=== PATIENT | male | born 1945 | race Caucasian/White ===

== ENCOUNTER 2019-03-26 06:00 | Outpatient (CLI) | payer OTHER, MEDICARE, MEDICAID, SELFPAY | END 2019-03-26 06:01 | disposition home or self-care (01) | LOC: ONCMED 10:49 | PROVIDERS: Family Provider Internal Medicine; PCP Internal Medicine; Visit Provider Internal Medicine Medical Oncology | DX: Z51.5 Encounter for palliative care (principal); C83.35 Diffuse large B-cell lymphoma, lymph nodes of inguinal region and lower limb; I10 Essential (primary) hypertension; E78.5 Hyperlipidemia, unspecified; E11.9 Type 2 diabetes mellitus without complications; I25.10 Atherosclerotic heart disease of native coronary artery without angina pectoris; M19.90 Unspecified osteoarthritis, unspecified site; K21.9 Gastro-esophageal reflux disease without esophagitis; E66.01 Morbid (severe) obesity due to excess calories; F41.8 Other specified anxiety disorders; Z92.21 Personal history of antineoplastic chemotherapy ==

== ENCOUNTER 2019-05-29 06:38 | Outpatient (CLI) | payer OTHER, MEDICARE, MEDICAID, SELFPAY ==
--- NOTE | 2019-05-29 13:07 | ONC FU_ITS ---
Dr. Pratt Patient Follow-Up Note Patient: Jered Mendez Unit #: [id number]: 1945 Dicatated By: Aaron Pratt M.D.Date of Visit:May 29, 2019 Onc Med Follow-up/Prog Note Chief Complaint: Lymphoma. 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 He had presented to Dr. Sanchez with fairly rapid onset of a skin lesion in the right lower leg, which he says had the appearance of a blood blister. An attempt to aspirate fluid from it was unsuccessful. He was then referred to Dr. Teran who described a suspicious mass on the lateral aspect of the right leg measuring 4 x 4 centimeters. Excisional biopsy was performed on 07/14/14. Pathology was consistent with primary cutaneous diffuse large B-cell lymphoma. The tumor was positive for CD20, BCL-6, and MUM1, and BCL-2. It was negative for CD3, CD5, CD10, and cyclin D1, and ZORAIDA. Ki-67 was high at 80-90%. The lesion was incompletely excised. I had seen him initially on . At that time I had recommended staging with PET/CT and bone marrow aspiration/biopsy. The bone marrow was negative. There was a significant delay with the PET/CT due to issues with his insurance carrier. It wasn't done until 09/30/2014 when he had a second opinion evaluation at [facility]. It showed uptake at the biopsy site in the lower right leg, consistent with inflammation. There was an area of uptake more proximally in the right leg which was felt to be consistent with another site of involvement. The only other area of abnormal uptake was in the right scrotum, significance of which was uncertain. There was a palpable mass associated with the area of uptake on the PET/CT. As that area appeared to be an extranodal site of involvement, his disease was felt to be stage MARCOS. The recommended treatment was 6 cycles of R-CHOP chemotherapy. He started the first cycle of chemotherapy in October 2014. It was complicated by dehydration and severe neutropenia. He did require hospitalization, but he did not have fever with it, and he recovered uneventfully. He did receive a 25% dose reduction in the cyclophosphamide and Adriamycin with the remaining cycles. He received his fourth cycle of treatment on 12/23/2014. Following that treatment he was back in the hospital again with nausea and dehydration. He did improve with IV fluids and IV anti-emetics. His white blood cell count was elevated, presumably from the Neulasta. He recovered uneventfully. Restaging CT scans on 01/11/2015 showed no evidence of lymphoma or lymphadenopathy in the chest or in the abdomen/pelvis. There is stable splenomegaly compared to previous study from March 2012. There was mild inhomogeneous attenuation of the lung parenchyma consistent with airway disease or pulmonary vascular disease. I had seen him for a followup visit on 01/13/2015. At that point he opted to stop treatment. A restaging PET/CT on 03/12/2015 was negative, consistent with complete response to chemotherapy. He was then followed on observation/expectant management. In May 2016 he had a skin biopsy from the right lower leg. Pathology showed lichen sclerosis et atrophicus. There was no evidence of lymphoma. He continued on observation/expectant management for the lymphoma. In January 2017 he underwent removal of a basal cell skin cancer from the left ear. I had seen him for a follow-up visit again on 12/03/2017. At that point his skin eruption appear to be getting worse. He underwent further evaluation with whole body PET/CT. It showed no evidence for recurrent or residual malignancy. In particular, dermal thickening of the right calf was noted to be FDG negative. He has multiple medical illnesses including hypertension, hyperlipidemia, type 2 diabetes, and coronary artery disease. He also has degenerative arthritis/degenerative disease of the spine, GERD, and severe obesity. He has only a very minimal smoking history, limited to cigars for about 6 months. He quit smoking more than 25 years ago. INTERIM HISTORY: At a follow-up visit with Dr. Sanchez there was further progression of the skin changes in the right leg, mainly in the area of the knee. He underwent punch biopsy on 04/14/2018. Pathology was consistent with diffuse large B-cell lymphoma, non-germinal center subtype. By immunoperoxidase staining the malignant cells were positive for CD45, CD20, BCL 6, BCL 2, Mum 1, cMyc, and vimentin. There were negative for CD10, CD3, CD5, cyclin D1, ZORAIDA, Sox 10, S100, Melan-A, and HMB-45. I had a follow-up visit on 04/25/2018. I reviewed further treatment options. He preferred to have just symptomatic/supportive care. I had seen him for a follow-up visit on 06/19/2018. At that point he did appear to be showing some decline. He subsequently was able to be placed in a longterm, and he was enrolled into hospice to continue his symptomatic/supportive care. Initially after admission to the longterm there was some improvement in his clinical status. However, he has since then been showing gradual decline. He is seen for a longterm visit. He remains very weak generally. He complains of having severe pain in his ankles with weightbearing. He also has pain in his knees, and he complains that his legs are weak. As such, he is now almost completely bedridden. His ECOG score is 3. He has now developed a decubitus skin lesion in the coccygeal area. His appetite has been okay. He has no fever or night sweats. He has some sinus drainage. He does not complain of shortness of breath, cough, or chest pain. He has had some discomfort in the epigastric area. He has no nausea/vomiting and he has no obvious acid reflux symptoms. His constipation is adequately managed on his current bowel regimen. He has frequent urination. He also has some pain in his neck and back. He has numbness/tingling in his feet. Medications: Acetaminophen 1 Suppository (of 650 mg) Rectal q 4 hours PRN, Ambien 1 (5 mg) Tablet Oral at bedtime, Aspirin 1 (325 mg) Tablet Oral daily, Atropine Sulfate 4 Drop(s) (of 1 mg/mL) Injection q 4 hours PRN, Bisacodyl 2 (5 mg) Tablet, enteric coated Oral daily PRN, Cough Drops Lozenge Mouth/throat, Cyclobenzaprine HCl 1 (10 mg) Tablet Oral t.i.d. PRN, Cymbalta 1 Capsule (of 60 mg) Capsule Delayed Release Particles Oral daily, Dulcolax 1 (10 mg) Suppository Rectal daily PRN, Duragesic-50 1 (50 mcg/hr) Patch 72 Hr Transdermal q 72 hours, Enema 1 (7-19 g/118mL) Enema Rectal daily PRN, Gabapentin 1 (300 mg) Capsule Oral at bedtime, Gentian Elizabeth 1 (1 %) Solution Topical daily, Hydrocodone-Acetaminophen 1 (10-325 mg) Tablet Oral q 4 hours PRN, LORazepam 0.25 - 1 mL (of 2 mg/mL) Concentrate Oral q 4 hours PRN, Metoprolol Tartrate 1 (25 mg) Tablet Oral b.i.d., Milk of Magnesia 30 mL (of 400 mg/5mL) Suspension Oral daily PRN, MiraLax 1 Scoop(s) (of 17 g) Powder Oral daily, Mirtazapine 1 Tablet (of 30 mg) Oral at bedtime, Nystatin 1 Dose(s) (of 499293 Units/g) Powder Topical b.i.d., Ondansetron 1 - 2 (4 mg) Tablet Dispersable Oral q 4 hours PRN, ProctoCare-HC 1 (2.5 %) Cream Rectal PRN, Senna-S 2 (8.6-50 mg) Tablet Oral b.i.d., Tamsulosin HCl 1 (0.4 mg) Capsule Oral daily Allergies: No Known Allergies. Review of Systems: Constitutional - His activity is very limited and he is now almost completely bed-bound. Appetite is pretty good. No fever or night sweats. ECOG score is 3, ENMT - He has a little sinus drainage. He has dry mouth. No sore throat or difficulty swallowing, Hematologic/Lymphatic - He bruises easily, Respiratory - He does not complain of shortness of breath or cough. No pleuritic pain or hemoptysis, Cardiovascular - No angina pain. No palpitations, Gastrointestinal - No nausea or vomiting. No heartburn or acid reflux. He has constipation, but bowels have been moving OK with his current bowel regimen. No blood in the stool or black stools, Genitourinary (M) - He has frequent urination. No dysuria or hematuria. No incontinence, Musculoskeletal - He has pain in his ankles and knees, and he complains that his legs are weak. He has some pain in the neck and back, Integumentary - He has a decubitus skin ulceration in the coccygeal area, Neurologic - No headache or dizziness. He has numbness/tingling in his feet, Psychiatric - He has anxiety and depression. He still has vivid dreams about every other night. Vital Signs: Performed on May 28, 2019 08:41 Height - 71.00 in Weight - 234.2 lbs (LOW) BSA - 2.26 sq.m BMI - 32.66 (HIGH) Temperature - 97.4 F (LOW) Pulse - 65 /min Respiration - 18 /min BP - 100/60 mm(hg) O2 Sat - 97 % Physical Examination: Constitutional - He appears generally weak, Eyes - Sclerae nonicteric. Conjunctivae clear, ENMT - No lesions noted in the oral cavity, Hematologic/Lymphatic - No cervical, clavicular, or axillary adenopathy, Respiratory - Lungs sound clear, Cardiovascular - Heart rhythm is regular. There is no murmur, gallop, or rub noted, Abdomen - Moderately distended but soft. Liver and spleen are not enlarged. There is no abdominal mass or ascites noted. There is no inguinal mass or adenopathy noted, Extremities - There is patchy, purplish discoloration in the medial aspect of the right leg just below the knee. There is no actual mass palpable. There is no lower extremity edema. Both feet are warm to touch, Integumentary - The cluster of exophytic lesions on the lateral aspect of the right leg just below the knee appears unchanged, Neurologic - He appears generally weak. He does not appear to have any focal neurologic deficit. Impression: 1. The patient has leg type primary cutaneous diffuse large B cell lymphoma involving the right lower leg. By clinical evaluation there appeared to be one additional site of involvement more proximally in the right leg. As this was felt to be extranodal site of involvement, his disease was felt to be stage MARCOS. He has multiple underlying medical illnesses, including hypertension, hyperlipidemia, diabetes and coronary artery disease. His pretreatment echocardiogram showed normal LV function with ejection fraction estimated at 55-60%. 2. He started treatment with R-CHOP chemotherapy in October 2014. As of 12/23/2014 he had completed 4 cycles of treatment. He experienced multiple toxicities including severe fatigue, nausea/dehydration, and myelosuppression. He did have a 25% dose reduction in the cyclophosphamide and Adriamycin following the first cycle. He did appear to have a very good response by clinical evaluation. He opted to stop treatment after the 4th cycle, which he completed in December 2014. There was no evidence of lymphoma on restaging CT scans in January 2015. 3. He had gradual improvement in his performance status following completion of the chemotherapy. A restaging PET/CT on 03/12/2015 was consistent with complete response to chemotherapy. He was then followed on observation/expectant management. 4. During follow-up he has had progressive worsening of skin changes in the right leg. As of December 2017 a restaging whole-body PET/CT showed no evidence of recurrent or residual lymphoma. 5. However, punch biopsy from the lateral aspect of the right leg just below the knee on 04/14/2018 did confirm recurrent diffuse large B-cell lymphoma, non-terminal center subtype. His other illnesses include: 6. Hypertension. 7. Hyperlipidemia. 8. Type II diabetes. 9. Coronary artery disease. 10. Obesity. 11. GERD. 12. Degenerative arthritis/degenerative disease of the spine. In the setting of documented recurrence of intermediate grade lymphoma, he had opted to just continue with symptomatic/supportive care. At his follow-up visit in June 2018 there was further decline in his performance status and there was obvious progression of disease in the area of the biopsy in the right leg. He was subsequently placed in the longterm to continue his symptomatic/supportive care on hospice. Initially after entering the longterm his condition improved somewhat, but he then began to have a gradual decline. There had been further progression of the tumor mass on the right leg, but that was much more gradual than I had expected. Since his visit in March the mass has actually shown significant resolution, for which I have no rational explanation. His overall condition, though, has continued to decline, as he is now almost completely bedridden. He does appear to be getting adequate symptomatic management, though. Plan: He will continue on symptomatic/supportive care. He is on decubitus skin care now, and he will be at risk for further skin ulcerations due to his limited mobility. At this point his symptomatic management appears to be adequate, and his medications will remain the same. Signed By: Aaron Pratt M.D. <<Signature on File>>
== END 2019-05-29 06:39 | disposition home or self-care (01) ==
LOC: ONCMED 06:38
PROVIDERS: Family Provider Internal Medicine; PCP Internal Medicine; Visit Provider Internal Medicine Medical Oncology
DX: Z01.89 Encounter for other specified special examinations (principal)

== ENCOUNTER 2020-03-25 10:53 | Inpatient (IN) | payer OTHER, MEDICARE, MEDICAID, SELFPAY ==
[2020-03-25] VITALS (10 sets, daily range): BP systolic 107–131; BP diastolic 55–68; PULSE 71–88; RESP 16–18; TEMP 36.3–37.1; O2SAT 95–98; BMI 42.5
--- NOTE | 2020-03-25 11:21 | USCV_ITS ---
Jered Mendez Age: 74 Gender: M : 1945 Exam Date: 03/25/2020 11:43 Ordering Phys: Aranza Avelar MD [facility] [place] Technologist: Emily Anand Exam Location: [facility] [place] Indication: SWOLLEN AND HAD RT LEG HISTORY: Swollen Rt. Leg. Being treated for lymphoma per pt. PROCEDURES: Venous duplex imaging was performed in only the right lower extremity. The following venous structures were evaluated: common femoral vein, profunda vein, proximal portion of the greater saphenous vein, superficial femoral vein, and the popliteal vein. In addition, the posterior tibial and peroneal trunk were evaluated. Serial compression, augmentation maneuvers, and spectral Doppler flow evaluation were performed. FINDINGS: Normal 2-D Doppler and augmentation and compressibility throughout the lower extremity venous structures. Additional imaging through the proximal calf veins also reveals no thrombus. Limited evaluation of the greater saphenous vein is patent with no thrombus. Solid mass with increased vascularity in the right groin. CONCLUSIONS No DVT right lower extremity. Right inguinal mass may be a lymph associated with known lymphoma. Dr. July Taylor DO (Electronically Signed) Final Date: 25 March 2020 12:16 S
[2020-03-25 11:48] LABS: Basophils % 0.4 %; Eosinophils # 0.1 10^3/uL (0.0-0.8); Hematocrit 36.8 % (42.0-52.0); Hemoglobin 11.4 g/dL (11.7-16.6); Lymphocytes # 1.1 10^3/uL (0.8-4.8); Lymphocytes % 21.6 %; Mean Corpuscular Hemoglobin 28.6 pg (28.0-34.0); Mean Corpuscular Volume 92.5 fL (80-94); Mean Platelet Volume 9.3 fL (7.4-10.4); Monocytes # 0.6 10^3/uL (0.2-0.9); Monocytes % 11.7 %; Neutrophils # 3.31 10^3/uL (1.8-7.7); Neutrophils % 64.3 %; Nucleated Red Blood Cells % 0 %; Platelet Count 129 10^3/cmm (130-400); Red Blood Count 3.98 10^6/uL (4.1-5.3); Red Cell Distribution Width 16.8 % (12.1-15.1); White Blood Count 5.1 10^3/uL (4.0-10.0)
--- NOTE | 2020-03-25 11:55 | W.ED.WOUNDLC ---
HPI - Wound/Laceration General: Chief Complaint: Wound/Laceration Stated Complaint: wounds to lower extremities Time Seen by Provider: 03/25/20 11:02 Source: patient, RN notes reviewed and other ([facility] staff) Mode of arrival: EMS History of Present Illness: HPI narrative: This 74-year-old gentleman is a [facility]it[facility] resident and was brought into the emergency department for evaluation of apparent worsening right leg swelling as well as wounds. The patient is not a great historian and he says he does not know why he is here. He has no complaints. The right lower extremity is obviously larger than the left and appears he has some chronic wounds there. He denies any fever, cough, chest pain, although he endorses some sore throat. The penitentiary staff wanted him evaluated for his leg ulcers and swelling. Associated symptoms: Denies chills, fever(s), nausea or vomiting Review of Systems General: Reports: 10 or more systems reviewed and unremarkable except in HPI and below Const: Denies: fever(s), chills or body aches Eyes: Denies: change in vision or blurry vision ENMT: Denies: throat pain, enlarged tonsils, odynophagia, hoarseness, mouth pain or swelling of lips/tongue Card: Denies: palpitations, irregular heart rhythm, edema or swelling of feet/ankles Resp: Denies: dyspnea, productive cough or non-productive cough GI: Denies: abdominal pain, nausea or vomiting : Denies: flank pain, dysuria, urinary frequency, urinary urgency or urinary hesitancy Musc: Denies: neck pain, back pain or extremity swelling Skin/Breast: Denies: rash, pruritus or erythema Neuro: Denies: headache(s), numbness in extremities or weakness in extremities Endo: Denies: polyuria, polydipsia or tired all the time Physical Exam Const: COMMON NORMALS: no acute distress, average body habitus, no limitations, healthy appearing, alert and well nourished ORIENTATION/CONSCIOUSNESS: Yes oriented to person HENMT: COMMON NORMALS: normocephalic, atraumatic and moist oral mucous membranes HEAD & SCALP: normocephalic and atraumatic Neck/C-Spine: COMMON NORMALS: no meningeal signs and no JVD Resp: COMMON NORMALS: normal respiratory effort, No retractions, No use of accessory muscles, clear to auscultation bilaterally and percussion normal AUSCULTATION: clear to auscultation bilaterally PERCUSSION: percussion normal Cardio: COMMON NORMALS: no JVD, regular rate, regular rhythm, S1 normal heart sound present, S2 normal heart sound present, No gallops present (Cardio), No clicks present (Cardio), No murmurs present (Cardio), No rub (Cardio) and Peripheral pulses 2+ throughout RATE: regular rate RHYTHM: regular rhythm HEART SOUNDS: S1 normal heart sound present and S2 normal heart sound present PERIPHERAL PULSES: Peripheral pulses 2+ throughout GI: COMMON NORMALS: Normal to inspection, nondistended, normoactive bowel sounds present, Soft to palpation, non-tender, No hepatosplenomegaly present, no masses and no bruits PALPATION: Yes Soft to palpation and Yes No hepatosplenomegaly present Extremity: COMMON NORMALS: normal to inspection, full ROM and capillary refill normal NARRATIVE EXTREMITY EXAM: Right lower extremity obviously markedly enlarged compared to the left. He has a clean gauze bandage wrapped around the middle third of his right lower extremity. Neuro: SENSORIUM/ORIENTATION: Yes alert and Yes oriented to person MENINGEAL SIGNS: Yes no meningeal signs Skin: COMMON NORMALS: no wounds, turgor normal, no jaundice, no petechiae and no mottling GENERAL SKIN EXAM: turgor normal Course ED course: When I was able to get in touch with a penitentiary, they said they were most concerned about his altered mental status and not his lower extremity. He apparently is usually independent and is able to feed himself, although he is bed reading. Today he was unable to feed himself and he was very confused. He was that way when he woke up this morning. Consultations: Consultation #1: Discussed the patient with Dr. Schmidt, and he kindly accepted patient to his service. 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 He has chronic swelling of his right lower extremity. He was sent to the emergency department today due to altered mental status, he is already on antibiotics for a UTI. Evaluation in the emergency department shows mildly elevated lactic acid, confusion, normal vital signs. He is admitted to the hospital service for further evaluation and management. While in the emergency department he received 1 g of ceftriaxone for possible UTI. Medical Records: Attestation: I reviewed the patient's medical records. Lab Data: Attestation: I reviewed the patient's lab results. Labs: Lab Results 03/25/20 03/25/20 03/25/20 Range/Units 11:41 11:41 11:41 WBC 5.1 (4.0-10.0) 10^3/ uL RBC 3.98 L (4.1-5.3) 10^6/u L Hgb 11.4 L (11.7-16.6) g/dL Hct 36.8 L (42.0-52.0) % MCV 92.5 (80-94) fL MCH 28.6 (28.0-34.0) pg MCHC 31.0 (30.0-36.0) g/dL RDW 16.8 H (12.1-15.1) % Plt Count 129 L (130-400) 10^3/c mm MPV 9.3 (7.4-10.4) fL Neut % (Auto) 64.3 % Lymph % (Auto) 21.6 % [place] % (Auto) 11.7 % Eos % (Auto) 1.0 % Baso % (Auto) 0.4 % Neut # (Auto) 3.31 (1.8-7.7) 10^3/u L Lymph # (Auto) 1.1 (0.8-4.8) 10^3/u L [place] # (Auto) 0.6 (0.2-0.9) 10^3/u L Eos # (Auto) 0.1 (0.0-0.8) 10^3/u L Baso # (Auto) 0.0 (0.0-0.1) 10^3/u L Nucleated RBC % (a uto) 0 % Nucleated RBCs # 0.0 /100WBC Sodium 136 (136-145) mmol/L Potassium 4.4 (3.5-5.1) mmol/L Chloride 99 (98-107) mmol/L Carbon Dioxide 29 (22-29) mmol/L Anion Gap 12.4 (5-19) BUN 25 H (8-23) mg/dL Creatinine 0.9 (0.7-1.2) mg/dL GFR Calculation Not Reportable Glucose 109 (65-115) mg/dL Calculated Osmolal ity 287 (285-295) mOsm/k g Lactate 2.3 H (0.5-2.2) mmol/L Calcium 11.2 H (8.5-10.5) mg/dL Total Bilirubin 0.9 (0.15-1.2) mg/dL AST 17 (0-40) U/L ALT 6 (0-41) U/L Alkaline Phosphata se 87 (40-130) IU/L C-Reactive Protein 33.1 H (0.0-4.9) mg/L NT-Pro-B Natriuret Pep 586 H (0-450) pg/mL Total Protein 6.0 L (6.6-8.7) g/dL Albumin 2.8 L (3.5-5.2) g/dL Globulin 3.2 (1.3-4.6) g/dL Urine Color (Yellow) Urine Appearance (CLEAR) Urine pH (5-7) Ur Specific Gravit y (1.005-1.030) Urine Protein (Negative) Urine Glucose (UA) (Normal) Urine Ketones (Negative) Urine Blood (Negative) Urine Nitrate (Negative) Urine Bilirubin (Negative) Urine Urobilinogen (Negative) mg/dL Ur Leukocyte Rachel ase (Negative) Urine RBC (0-2) /hpf Urine WBC (0-5) /hpf Ur Squamous Epith Cells (0-5) /hpf Amorphous Sediment Urine Bacteria (NONE) /hpf 03/25/20 03/25/20 Range/Units 14:50 15:41 WBC (4.0-10.0) 10^3/ uL RBC (4.1-5.3) 10^6/u L Hgb (11.7-16.6) g/dL Hct (42.0-52.0) % MCV (80-94) fL MCH (28.0-34.0) pg MCHC (30.0-36.0) g/dL RDW (12.1-15.1) % Plt Count (130-400) 10^3/c mm MPV (7.4-10.4) fL Neut % (Auto) % Lymph % (Auto) % [place] % (Auto) % Eos % (Auto) % Baso % (Auto) % Neut # (Auto) (1.8-7.7) 10^3/u L Lymph # (Auto) (0.8-4.8) 10^3/u L [place] # (Auto) (0.2-0.9) 10^3/u L Eos # (Auto) (0.0-0.8) 10^3/u L Baso # (Auto) (0.0-0.1) 10^3/u L Nucleated RBC % (a uto) % Nucleated RBCs # /100WBC Sodium (136-145) mmol/L Potassium (3.5-5.1) mmol/L Chloride (98-107) mmol/L Carbon Dioxide (22-29) mmol/L Anion Gap (5-19) BUN (8-23) mg/dL Creatinine (0.7-1.2) mg/dL GFR Calculation Glucose (65-115) mg/dL Calculated Osmolal ity (285-295) mOsm/k g Lactate 2.3 H (0.5-2.2) mmol/L Calcium (8.5-10.5) mg/dL Total Bilirubin (0.15-1.2) mg/dL AST (0-40) U/L ALT (0-41) U/L Alkaline Phosphata se (40-130) IU/L C-Reactive Protein (0.0-4.9) mg/L NT-Pro-B Natriuret Pep (0-450) pg/mL Total Protein (6.6-8.7) g/dL Albumin (3.5-5.2) g/dL Globulin (1.3-4.6) g/dL Urine Color Yellow (Yellow) Urine Appearance Clear (CLEAR) Urine pH 5 (5-7) Ur Specific Gravit y 1.030 (1.005-1.030) Urine Protein Neg (Negative) Urine Glucose (UA) Norm (Normal) Urine Ketones 1+ H (Negative) Urine Blood 2+ H (Negative) Urine Nitrate Negative (Negative) Urine Bilirubin 1+ H (Negative) Urine Urobilinogen 1 H (Negative) mg/dL Ur Leukocyte Rachel ase Negative (Negative) Urine RBC 15-25 H (0-2) /hpf Urine WBC 0-4 H (0-5) /hpf Ur Squamous Epith Cells 0-4 H (0-5) /hpf Amorphous Sediment Not Reportable Urine Bacteria 2+ H (NONE) /hpf Imaging Data^: CT Abd/Pel: Attestation: I personally reviewed and interpreted this imaging study as follows: Radiologist's impression: [place] [id number] [place] Scan Report Signed Patient: Jered Mendez #: [id number] : 4Acct#:[id number] Age/Sex: 74 / MADM Date: 03/25/20 Loc: ERRoom/Bed: Attending Dr: Ordering Provider/Ordering MD: Aranza [place]ar [place] [facility] [place] Service: 03/25/20 Procedure(s): CT kidney stone 43163 Accession Number(s): [id number] Report Number: [id number] PROCEDURE INFORMATION: Exam: CT Abdomen And Pelvis Without Contrast Exam date and time: 03/25/2020 4:54 PM Age: 74 years old Clinical indication: Other: Hematuria; Prior surgery; Surgery type: Gb, appy; Additional info: Hematuria, UTI TECHNIQUE: Imaging protocol: Computed tomography of the abdomen and pelvis without contrast. Radiation optimization: All CT scans at this facility use at least one of these dose optimization techniques: automated exposure control; mA and/or kV adjustment per patient size (includes targeted exams where dose is matched to clinical indication); or iterative reconstruction. COMPARISON: 1. CT abdomen pelvis wo con [id number] 12/14/2018 11:[address] Chest/Abdomen/Pelvis o 01/11/2015 11:47:36 AM RADIATION DOSE METRICS: Total DLP (mGy-cm): 2145.23 FINDINGS: Limitations: The absence of intravenous contrast lessens the sensitivity of this study for solid organ abnormalities. Lungs: There is some partial atelectasis at both lung bases, more on the right than on the left. Pleural space: There are small bilateral pleural effusions more on the right than on the left. Liver: There is no focal abnormality within the liver. Gallbladder and bile ducts: There has been a cholecystectomy. Pancreas: The pancreas is normal. Spleen: The spleen is normal. Adrenal glands: The adrenal glands are normal. Kidneys and ureters: There is a right renal collecting system calcification. There is no evidence of hydronephrosis. There is no stone along the course of either ureter. The left kidney is normal. Stomach and bowel: There is some mild thickening of the proximal rectal wall which could represent some residual proctitis. This however is improved compared with 12/14/2018. Appendix: Not identified Intraperitoneal space: There is no evidence of free intraperitoneal fluid. Vasculature: and small calcification anterior to the left renal vein. There are small bilateral inguinal hernias containing fat. There is abnormal swelling or edema in the soft tissues of the lower right flank on the lowest portion of this examination. This appears to be extending into the thigh. Correlation with clinical findings is suggested. This could represent focal bruising or contusion or less likely infectious or inflammatory disease. Lymph nodes: There is new right external iliac adenopathy compared with the previous examination with the largest group of nodes measuring 6.3 x 4.0 x 2.6 cm, This is worrisome for metastatic adenopathy. Urinary bladder: Unremarkable as visualized. Reproductive: Unremarkable as visualized. Bones/joints: Unremarkable. No acute fracture. Soft tissues: The upper abdominal soft tissue mass described on 12/14/2018 is much smaller with residual 12 mm sized soft tissue nodule near the location of its lower end CT/CT kidney stone [id number] IMPRESSION: 1. Nonobstructing right kidney stone. 2. No ureteral calculi. 3. There is new right external iliac adenopathy worrisome for recurrence or metastatic disease. 4. Abnormal soft tissue contusion or edema in the lower right flank. 5. Mild wall thickening of the proximal rectum. Is uncertain whether this represents recurrent or residual disease compared with 12/14/2018. 6. Small bilateral pleural effusions. 7. Basilar atelectasis. Radiation Dose CTDIVOL = (mGy): DLP = 2145.23 (mGy-cm) Dictated By:Sunny Haynes Signed By:Segel,KennethSigned Date/Time:03/25/201806 DD/ 04 CXR: Attestation: I personally reviewed and interpreted this imaging study as follows: Radiologist's impression: [employer] [address] [place] [address]. [place] [address] XRay Report Signed Patient: Jered Mendez #: [id number] : 1945cct#:[id number] Age/Sex: 74 / MADM Date: 03/25/20 Loc: ERRoom/Bed: Attending Dr: Ordering Provider/Ordering MD: Aranza Avelar MD, [facility] [place] of Service: 03/25/20 Procedure(s): XR chest 1V portable [id number] Accession Number(s): [id number] Report Number: [id number] WS: [id number] PORTABLE CHEST HISTORY: AMS COMPARISON: 12/14/2018 Right-sided Port-A-Cath with tip in the mid SVC. Lungs are clear and well expanded. No pleural effusion or pneumothorax. Cardiac size: Normal. Mediastinum/Aorta: Mild ectasia thoracic aorta with slight widening of the mediastinum is similar to prior studies. No osseous abnormality seen. XR/XR chest 1V portable [id number] IMPRESSION: Stable chest with no acute cardiopulmonary disease. Dictated By:July Taylor DO Signed By:July Taylor DOSigned Date/Time:03/25/20 162 DD/ 162 CT Head: Attestation: I personally reviewed and interpreted this imaging study as follows: Radiologist's impression: [employer] [address] [place] [address]. [place] [address] CT Scan Report Signed Patient: Jered Mendez #: [id number] : [id number]#:[id number] Age/Sex: 74 / MADM Date: 03/25/20 Loc: ERRoom/Bed: Attending Dr: Ordering Provider/Ordering MD: Aranza Avelar MD, [facility] [place] of Service: 03/25/20 Procedure(s): CT head wo con* [id number] Accession Number(s): [id number] Report Number: [id number] WS: [id number] CT HEAD NONCONTRAST HISTORY: AMS TECHNIQUE: Contiguous axial imaging performed through the brain in 2.5 mm imaging. Bone and soft tissue windows. Sagittal and coronal reformats reviewed. All CT scans at [facility] use at least one of these dose optimization techniques: automated exposure control; mA and/or kV adjustment per patient size (includes targeted exams where dose is matched to clinical indication); or iterative reconstruction. DLP: 921.22 mGy.cm COMPARISON: 12/14/2018 No acute intracranial hemorrhage, midline shift or mass effect. There is significant atrophy of the frontal lobes with increasing surrounding CSF. This is not an acute finding. No prior infarcts. Ventricles: Normal size with no hydrocephalus. Moderate vascular calcifications in the intracranial carotid arteries and also the distal RIGHT vertebral artery. Paranasal sinuses: Mastoid air cells: Small amount of fluid in the posterior RIGHT mastoid air cells. Calvarium and scalp: Skull is intact with no soft tissue edema or swelling. CT/CT head wo con* [id number] IMPRESSION: 1. 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 2. Normal size ventricles. 3. No acute intracranial findings. Dictated By:July Taylor DO Signed By:July Taylor DOSigned Date/Time:03/25/201413 DD/ 141 Vascular: Attestation: I personally reviewed and interpreted this imaging study as follows: Radiologist's impression: [address] [place] [address] Ultrasound Report Signed Patient: Jered Mendez SUnit #: [id number] : [id number]#:[id number] Age/Sex: 74 / MADM Date: 03/25/20 Loc: ERRoom/Bed: Attending Dr: Ordering Provider/Ordering MD: Aranza Avelar MD, [facility] [place] of Service: 03/25/20 Procedure(s): [place] [id number] Accession Number(s): [id number] Report Number: [id number] Jered Mendez Age: 74 Gender: M : 1945 Exam Date: 03/25/2020 11:43 Ordering Phys: Aranza Avelar MD [facility] [place] Technologist: Emily Anand [place] [facility] [place]ication: SWOLLEN AND HAD RT LEG HISTORY: Swollen Rt. Leg. Being treated for lymphoma per pt. PROCEDURES: Venous duplex imaging was performed in only the right lower extremity. The following venous structures were evaluated: common femoral vein, profunda vein, proximal portion of the greater saphenous vein, superficial femoral vein, and the popliteal vein. In addition, the posterior tibial and peroneal trunk were evaluated. Serial compression, augmentation maneuvers, and spectral Doppler flow evaluation were performed. FINDINGS: Normal 2-D Doppler and augmentation and compressibility throughout the lower extremity venous structures. Additional imaging through the proximal calf veins also reveals no thrombus. Limited evaluation of the greater saphenous vein is patent with no thrombus. Solid mass with increased vascularity in the right groin. CONCLUSIONS No DVT right lower extremity. Right inguinal mass may be a lymph associated with known lymphoma. Dr. July Taylor DO (Electronically Signed) Final Date: 25 March 2020 12:16 S EKG Data^: EKG 1: Attestation: I personally reviewed and interpreted this EKG as follows: EKG interpretation date: 03/25/20 EKG interpretation time: 14:09 Prior EKG tracings: not available for review Interpretation: Sinus rhythm with occasional supraventricular premature complexes. Heart rate [address] changes. Discharge Plan Discharge Patient Disposition: Admitted As Inpatient Admit Provider: Magdy Schmidt Clinical Impression: Altered mental status, Acute UTI, Acidosis, lactic Condition: Stable Coding Level of Care Code ED Director Life for Chg Fwd Exam Comprehensive
[2020-03-25 12:08] LABS: Lactate (Lactic Acid level) 2.3 mmol/L (0.5-2.2)
[2020-03-25 12:14] LABS: Alanine Aminotransferase 6 U/L (0-41); Albumin Level 2.8 g/dL (3.5-5.2); Alkaline Phosphatase 87 IU/L (40-130); Anion Gap 12.4 (5-19); Aspartate Amino Transferase 17 U/L (0-40); Blood Urea Nitrogen 25 mg/dL (8-23); C Reactive Protein 33.1 mg/L (0.0-4.9); Calcium 11.2 mg/dL (8.5-10.5); Carbon Dioxide 29 mmol/L (22-29); Chloride 99 mmol/L (98-107); Globulin 3.2 g/dL (1.3-4.6); Glucose 109 mg/dL (65-115); NT Pro B Type Natriuretic Pept 586 pg/mL (0-450); Osmolality Calculated 287 mOsm/kg (285-295); Potassium 4.4 mmol/L (3.5-5.1); Sodium 136 mmol/L (136-145); Total Bilirubin 0.9 mg/dL (0.15-1.2)
--- NOTE | 2020-03-25 13:46 | ECG_ITS ---
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 Measurements Intervals [place] Rate: 77 P: 50 AZ: 166 QRS: -11 QRSD: 119 T: 58 QT: 363 QTc: 413 Interpretive Statements SINUS RHYTHM WITH OCCASIONAL SUPRAVENTRICULAR PREMATURE COMPLEXES POSSIBLE LATERAL MYOCARDIAL INFARCTION , OF INDETERMINATE AGE [30 ms Q WAVE IN I/aVL/V5/V6] Compared to ECG 12/15/2018 00:39:09 Myocardial infarct finding now present Electronically Signed On 03-25-2020 19:12:46 CLERK CARRIER by Cesario Escobar M.D. [id number]
--- NOTE | 2020-03-25 13:46 | CT_ITS ---
WS: [id number] CT HEAD NONCONTRAST HISTORY: AMS TECHNIQUE: Contiguous axial imaging performed through the brain in 2.5 mm imaging. Bone and soft tiss ue windows. Sagittal and coronal reformats reviewed. All CT scans at [facility] use at le ast one of these dose optimization techniques: automated exposure control; mA and/or kV adjustment pe r patient size (includes targeted exams where dose is matched to clinical indication); or iterative r econstruction. DLP: 921.22 mGy.cm COMPARISON: 12/14/2018 No acute intracranial hemorrhage, midline shift or mass effect. There is significant atrophy of the frontal lobes with increasing surrounding CSF. This is not an acu te finding. No prior infarcts. Ventricles: Normal size with no hydrocephalus. Moderate vascular calcifications in the intracranial carotid arteries and also the distal RIGHT verte bral artery. Paranasal sinuses: Mastoid air cells: Small amount of fluid in the posterior RIGHT mastoid air cells. Calvarium and scalp: Skull is intact with no soft tissue edema or swelling. CT/CT head wo con* [id number] IMPRESSION: 1. 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 2. Normal size ventricles. 3. No acute intracranial findings.
[2020-03-25] MEDS: sodium chloride 0.9% 500 ML IV (14:28)
[2020-03-25 15:33] LABS: Add Urine Microscopic? YES; Bilirubin Urine 1+ (Negative); Blood Urine 2+ (Negative); Glucose Urine UA Norm (Normal); Ketones Urine 1+ (Negative); Leukocyte Esterase Urine Negative (Negative); Nitrate Urine Negative (Negative); Protein Urine Neg (Negative); Urine Appearance Clear (CLEAR); Urine Color Yellow (Yellow); Urobilinogen Urine 1 mg/dL (Negative); pH Urine 5 (5-7)
[2020-03-25 15:34] LABS: RBC Urine 15-25 /hpf (0-2)
[2020-03-25 15:35] LABS: Add Urine Culture? Yes; Bacteria Urine 2+ /hpf; Squamous Epithelial Cell Urine 0-4 /hpf (0-5); WBC Urine 0-4 /hpf (0-5)
[2020-03-25] MEDS: cefTRIAXone 1,000 MG in sodium chloride 0.9% (plus) 50 ML 100 MG IV (15:57)
[2020-03-25 16:03] LABS: Lactate (Lactic Acid level) 2.3 mmol/L (0.5-2.2)
--- NOTE | 2020-03-25 16:03 | XR_ITS ---
WS: [id number] PORTABLE CHEST HISTORY: AMS COMPARISON: 12/14/2018 Right-sided Port-A-Cath with tip in the mid SVC. Lungs are clear and well expanded. No pleural effusion or pneumothorax. Cardiac size: Normal. Mediastinum/Aorta: Mild ectasia thoracic aorta with slight widening of the mediastinum is similar to prior studies. No osseous abnormality seen. XR/XR chest 1V portable [id number] IMPRESSION: Stable chest with no acute cardiopulmonary disease.
--- NOTE | 2020-03-25 16:46 | CTR_ITS ---
PROCEDURE INFORMATION: Exam: CT Abdomen And Pelvis Without Contrast Exam date and time: 03/25/2020 4:54 PM Age: 74 years old Clinical indication: Other: Hematuria; Prior surgery; Surgery type: Gb, appy; Additional info: Hematuria, UTI TECHNIQUE: Imaging protocol: Computed tomography of the abdomen and pelvis without contrast. Radiation optimization: All CT scans at this facility use at least one of these dose optimization techniques: automated exposure control; mA and/or kV adjustment per patient size (includes targeted exams where dose is matched to clinical indication); or iterative reconstruction. COMPARISON: 1. CT abdomen pelvis wo con [id number] 12/14/2018 11:[address] Chest/Abdomen/Pelvis wwo 01/11/2015 11:47:36 AM RADIATION DOSE METRICS: Total DLP (mGy-cm): 2145.23 FINDINGS: Limitations: The absence of intravenous contrast lessens the sensitivity of this study for solid organ abnormalities. Lungs: There is some partial atelectasis at both lung bases, more on the right than on the left. Pleural space: There are small bilateral pleural effusions more on the right than on the left. Liver: There is no focal abnormality within the liver. Gallbladder and bile ducts: There has been a cholecystectomy. Pancreas: The pancreas is normal. Spleen: The spleen is normal. Adrenal glands: The adrenal glands are normal. Kidneys and ureters: There is a right renal collecting system calcification. There is no evidence of hydronephrosis. There is no stone along the course of either ureter. The left kidney is normal. Stomach and bowel: There is some mild thickening of the proximal rectal wall which could represent some residual proctitis. This however is improved compared with 12/14/2018. Appendix: Not identified Intraperitoneal space: There is no evidence of free intraperitoneal fluid. Vasculature: and small calcification anterior to the left renal vein. There are small bilateral inguinal hernias containing fat. There is abnormal swelling or edema in the soft tissues of the lower right flank on the lowest portion of this examination. This appears to be extending into the thigh. Correlation with clinical findings is suggested. This could represent focal bruising or contusion or less likely infectious or inflammatory disease. Lymph nodes: There is new right external iliac adenopathy compared with the previous examination with the largest group of nodes measuring 6.3 x 4.0 x 2.6 cm, This is worrisome for metastatic adenopathy. Urinary bladder: Unremarkable as visualized. Reproductive: Unremarkable as visualized. Bones/joints: Unremarkable. No acute fracture. Soft tissues: The upper abdominal soft tissue mass described on 12/14/2018 is much smaller with residual 12 mm sized soft tissue nodule near the location of its lower end CT/CT kidney stone [id number] IMPRESSION: 1. Nonobstructing right kidney stone. 2. No ureteral calculi. 3. There is new right external iliac adenopathy worrisome for recurrence or metastatic disease. 4. Abnormal soft tissue contusion or edema in the lower right flank. 5. Mild wall thickening of the proximal rectum. Is uncertain whether this represents recurrent or residual disease compared with 12/14/2018. 6. Small bilateral pleural effusions. 7. Basilar atelectasis. Radiation Dose CTDIVOL = (mGy): DLP = 2145.23 (mGy-cm)
--- NOTE | 2020-03-25 19:39 | P.HP_ITS ---
Providers/Chief Complaint Admitting Physician: Magdy Schmidt Primary Care Provider: Ashley Sanchez MD Chief Complaint: wounds to lower extremities History of Present Illness Pleasant 74-year-old gentleman with relapsing/remitting course of DLBCL with primary cutaneous focus treated with R-CHOP in 2014 initially with good response, but elected to stop treatment after fourth cycle, without evidence of lymphoma on restaging scans, however, with progressive worsening of skin changes in the right leg in 2018, with confirmation punch biopsy of recurrence of DLBCL, managed symptomatically, with supportive care since then, transiently also on hospice care until last July, with gradual/persistent decline in functional status, he is completely bedridden, with other history including CAD DM2, HTN, HLD, obesity. At [facility] currently he is undergoing treatment for urinary tract infection with Bactrim. I could not reach the [facility] for details, with most history obtained from ER physician with spoken with him earlier, patient, and patient's daughter who is also his DURABLE POWER OF LYE TREATER. He states that he also had return of quite a bit of swelling in his right lower extremity. He was brought in for evaluation due to change in mental status, he was significantly more confused than usual. She also reports last several days he had declined to take any of his medications, even if they were crushed. He himself currently appears to be more alert. He is able to tell me he thinks he is in the hospital, but does not remember the name of the town, or the year. He does remember that he has lymphoma, does not recall any other medical problems. He then remembers that he may have seen a heart doctor and had a stent placed. He does not remember the name of the heart doctor, does not remember the name of his oncologist. States he may have been in [place] once previously. He states that his eyes have been somewhat burning and itching like there is sand in them. He also thinks he may have been having diarrhea, although there has been no report of this. In ER he is afebrile (and has been afebrile at [facility] per documentation), without leukocytosis. With anemia, hemoglobin 11.4, platelet level 129. Normal sodium and potassium level. BUN 25. Creatinine 0.9. Lactic acid 2.3. Calcium 11.2. BNP 586. Total protein 6. Albumin 2.8. CRP 33. UA with 1+ ketones, 2+ blood, 1+ bilirubin, positive urobilinogen, 15- 25 RBC, 0-4 WBC, 0-4 squamous epithelial cells. 2+ bacteria. George catheter was placed in ER. His EKG showed sinus rhythm with occasional PVCs. In ER he is noted to have marked swelling of the right lower extremity. Venous duplex was obtained without finding of DVT. With finding of right inguinal mass possib ly due to lymphoma. Head CT showed moderate to severe bilateral frontal lobe atrophy, normal size ventricle, no acute findings. Chest x-ray with no acute cardiopulmonary disease. CT abdomen pelvis renal protocol shows nonobstructing right kidney stone, no ureteral stones. Noted new right external iliac adenopathy worrisome for recurrence of metastatic disease. Abnormal soft tissue contusion or edema in the lower right flank. Mild wall thickening of the proximal rectum. Small bilateral pleural effusions. Bilateral atelectasis. In ER he received 500 mill fluid bolus, and 1 g of ceftriaxone. Review of Systems Const: Denies: fever(s), chills, body aches or malaise Eyes: Denies: change in vision or eye redness ENMT: Denies: throat pain, oral sores or ear or mastoid pain Card: Denies: chest pain, edema, pre-syncope or dyspnea on exertion Resp: Denies: dyspnea, productive cough, change in phlegm color or hemoptysis GI: Denies: abdominal pain, nausea, vomiting, diarrhea, constipation, hematochezia or melena : Denies: flank pain, difficulty urinating, urinary frequency or hematuria Musc: Denies: back pain, joint swelling or joint redness Skin/Breast: Denies: rash, sores or new lesions Neuro: Denies: headache(s), numbness in extremities, weakness in extremities, dizziness, confusion or seizure-like activity Endo: Denies: polyuria or polydipsia Jameel/Lymph: Denies: easy bleeding or purpura All/Imm: Denies: urticaria, throat swelling or tongue swelling Medications/Allergies Home Medications Medication Instructions Recorded Confirmed Last Taken Type Cough Drops (with eucalyptus) 1 tab PO Q2H PRN 03/25/20 03/25/20 Unknown History acetaminophen 650 mg MO Q4H PRN 03/25/20 03/25/20 Unknown History aspirin 325 mg PO DAILY@0700 03/25/20 03/25/20 03/25/20 History atropine 4 drp OPHTHALMIC (EYE) Q4H PRN 03/25/20 03/25/20 Unknown History baclofen 10 mg PO TID PRN 03/25/20 03/25/20 Unknown History bisacodyl [Dulcolax (bisacodyl)] 5 mg PO DAILY PRN 03/25/20 03/25/20 Unknown History duloxetine [Cymbalta] 60 mg PO DAILY@0700 03/25/20 03/25/20 03/25/20 History fentanyl 1 patch TRANSDERMAL Q72H 03/25/20 03/25/20 03/24/20 History gabapentin 300 mg PO TID@0700,1200,1800 03/25/20 03/25/20 03/25/20 History gentian rod See Rx Instructions .ROUTE .COMPLEX 03/25/20 03/25/20 03/22/20 History hydrocodone-acetaminophen 1 tab PO Q4H 03/25/20 03/25/20 03/25/20 History hydrocortisone [Proctozone-HC] See Rx Instructions .ROUTE .COMPLEX 03/25/20 03/25/20 Unknown History magnesium hydroxide [Milk of 400 mg PO DAILY PRN 03/25/20 03/25/20 Unknown History Magnesia] metoprolol tartrate 25 mg PO BID@0700,2100 03/25/20 03/25/20 03/25/20 History nystatin [Nystop] See Rx Instructions .ROUTE .COMPLEX 03/25/20 03/25/20 03/24/20 History ondansetron 4 mg PO Q6H PRN 03/25/20 03/25/20 Unknown History polyethylene glycol 3350 [Miralax] 17 g PO DAILY 03/25/20 03/25/20 03/25/20 History sennosides-docusate sodium [Senna 2 tab PO BID@0700,2100 03/25/20 03/25/20 03/25/20 History Plus] sodium phosphates [Fleet Enema] 118 ml MO DAILY PRN 03/25/20 03/25/20 Unknown History tamsulosin 0.4 mg PO DAILY@2100 03/25/20 03/25/20 03/24/20 History zolpidem 5 mg PO BEDTIME@2100 03/25/20 03/25/20 03/24/20 History Allergies Allergy/AdvReac Type Severity Reaction Status Date / Time No Known Drug Allergies Allergy Unknown Unknown Unverified 03/25/20 11:02 PFSH Acute PFSH: Medical History CAD (coronary artery disease) DLBCL (diffuse large B cell lymphoma) DM type 2 (diabetes mellitus, type 2) GERD (gastroesophageal reflux disease) HLD (hyperlipidemia) HTN (hypertension) Obesities, morbid Osteoarthritis of spine Surgical History Stented coronary artery Family History (Updated 03/25/20 @ 19:51 by Magdy Schmidt MD) Other Diabetes Social History Smoking and tobacco status: never smoked Alcohol intake: never Substance/Drug Use: never Lives independently: No Housing: [place] Marital status: / Vitals/I&O/Wt Last Vital Signs Temp 97.4 F L 03/25/20 19:26 Pulse 86 03/25/20 19:26 Resp 16 03/25/20 19:26 BP 111/58 03/25/20 19:26 Pulse Ox 95 03/25/20 19:26 03/25/20 03/25/20 03/25/20 06:59 14:59 22:59 Intake Total 550 / 550 Balance 550 / 550 Weight last 48 hrs Weight 130.635 kg Physical Exam Const: COMMON NORMALS: no acute distress and patient oriented x3 HENMT: COMMON NORMALS: oropharynx normal Neck/C-Spine: COMMON NORMALS: no JVD Resp: COMMON NORMALS: normal respiratory effort and clear to auscultation bilaterally AUSCULTATION: clear to auscultation bilaterally Cardio: COMMON NORMALS: no JVD, regular rhythm, S1 normal heart sound present, S2 normal heart sound present and No murmurs present (Cardio) RHYTHM: regular rhythm HEART SOUNDS: S1 normal heart sound present and S2 normal heart sound present GI: COMMON NORMALS: Normal to inspection, nondistended, normoactive bowel sounds present, Soft to palpation and non-tender PALPATION: Yes Soft to palpation Extremity: COMMON NORMALS: no joint enlargement and no pedal edema Neuro: COMMON NORMALS: patient oriented x3 and moves all extremities Skin: COMMON NORMALS: no rashes or lesions noted RASHES: rashes noted (With severe lymphedema, multiple patchy spots of erythema, some very shallo) Shallow areas of discoloration, without drainage, few blisters of right lower extremity. OTHER: No active sacral decub. Urinary Catheter Management^: George: Cath Placed During This Visit: yes Reason for Continuing Indwelling Catheter: Accurate Measurement of Urinary Output in Critically Ill Patients Urinary Catheter Date of Insertion: 03/25/20 Urinary Catheter Time of Insertion: 17:22 Data : 03/25/20 11:41 03/25/20 11:41 Micro: Microbiology 03/25/20 16:18 Blood Culture - Preliminary Blood SPECIMEN COLLECTED 03/25/20 16:15 Blood Culture - Preliminary Blood SPECIMEN COLLECTED A&P Assessment and plan (1) Altered mental status: Appears today was rather confused in the morning. This, however, appears may have been developing over some time as he had refused to take any of his medications over several days. Possible encephalopathy due to urinary tract infection. Possible adverse effect of medication (withdrawal). Although also he is treated with fentanyl patch, baclofen, hydrocodone, Ambien, and is on duloxetine, and as discussed with daughter any and all of these medications are potential to lead to alteration of mental status and delirium. Possibly delirium due to metabolic abnormality including dehydration, hypercalcemia. At this time will treat UTI. Monitor for possible diarrhea at which point may treat for possible colitis. We will rehydrate. Reassess hypercalcemia. If persistent, consider additional work-up. Check TSH. Discussed with his daughter, perhaps once we take care of a few this reversible causes mental status may improve. Still there may also be a chance that we may not be able to reverse his recent decline which may also be part of progressive loss of functional capacity which has been advancing over the last 2 years. He was transiently on hospice up until last July at which point it appears he was discharged from hospice. Daughter states that she was not notified of this. Status: Acute Qualifiers: Altered mental status type: unspecified Qualified Code(s): R41.82 - Altered mental status, unspecified (2) Acute UTI: Complicated urinary tract infection with acute encephalopathy. We will request medical record for urine culture-was obtained at [facility]. Has been receiving Bactrim. For now we will hold off on this, with elevated BUN, risk of acute kidney injury with dehydration. For now we will switch over to Cipro. Follow-up urine culture. Blood culture. Incidentally noted nonobstructing right kidney stone, possibly responsible for microscopic hematuria. No hydronephrosis on CT. Status: Acute (3) Acidosis, lactic: Previously on Metformin, but apparently has declined to take this any further some days ago. Lactic acidosis suspect is more likely secondary to hypovolemia, poor oral intake. Will rehydrate. Treat UTI as above. Status: Acute (4) Dehydration: IV hydration Status: Acute (5) Hypercalcemia: Rehydrate. Reassess in the morning. Check TSH. Status: Acute (6) Lymphedema of right lower extremity: Appears to have recurrence of metastatic disease, DLBCL, with noted significant right groin lymphadenopathy, with resultant right lower extremity lymphedema. Right flank edema. No obvious cellulitis, but some small patchy areas of erythema. Cannot exclude cellulitis. For now we will empirically treat with vancomycin. Status: Acute (7) DLBCL (diffuse large B cell lymphoma): With recurrence of disease, extensive right groin lymphadenopathy with resultant lymphedema of her lower extremity. Manage symptomatically/supportive care. Status: Acute (8) Abnormality of rectum: Unclear whether there may be some colitis, although this appears perhaps somewhat chronic. Unclear whether this may be related to his lymphoma. He does report perhaps having some diarrhea, although this is unconfirmed, not sure that his history is reliable. We will monitor for now. In case of suspicion of colitis will broaden coverage. Status: Acute (9) Hematuria: Hematuria likely secondary to UTI versus nonobstructing right renal calculus. Status: Acute (10) Right renal stone: Incidentally noted on CT scan. Nonobstructing. Status: Acute (11) Atelectasis: Encourage incentive spirometer. Status: Acute (12) Thrombocytopenia: Platelets 129,000. Perhaps related to lymphoma versus infection. Monitor. Consider discontinuation of heparin VT prophylaxis in case of severe decline. Status: Acute (13) Normocytic anemia: Status: Acute (14) Obesities, morbid: Status: Acute (15) DM type 2 (diabetes mellitus, type 2): Reportedly he discontinued taking Metformin recently. Monitor glucose. With very poor oral intake will start regular diet. Status: Acute Attestations Medical Necessity Statement*: Place in observation. Coding Level of Care Code Acute [employer] for Chg Fwd Diagnoses Altered mental status R41.82 Altered mental status type: unspecified Acute UTI N39.0 Acidosis, lactic E87.2 Dehydration E86.0 Hypercalcemia E83.52 Lymphedema of right lower extremity I89.0 DLBCL (diffuse large B cell lymphoma) C83.30 Abnormality of rectum K62.9 Hematuria R31.9 Right renal stone N20.0 Atelectasis J98.11 Thrombocytopenia D69.6 Normocytic anemia D64.9 Obesities, morbid E66.01 DM type 2 (diabetes mellitus, type 2) E11.9
--- NOTE | 2020-03-25 20:10 | PC.PHAR ---
Vancomycin is dosed at 1gm IVPB every 8 hours to produce a predicted trough level of 14.49 (population based pharmacokinetic analysis). A trough level has been ordered from the lab to be obtained before the fourth dose to confirm and adjust if needed.
[2020-03-25] MEDS: ciprofloxacin 400 MG/200 ML PREMIX 200 MG IV (20:26)
[2020-03-25] MEDS: sodium chloride 0.9% 1,000 ML 100 ML IV (20:31)
[2020-03-25 20:50] LABS: Thyroid Stimulating Hormone 3.44 uIU/mL (0.27-4.20)
[2020-03-25] MEDS: heparin 5,000 unit/mL INJ 1 mL 5000 UNIT SUBCUT (20:57)
[2020-03-25] MEDS: vancomycin 1,000 MG in sodium chloride 0.9% 250 ML 250 MG IV (21:35)
--- NOTE | 2020-03-26 01:10 | PC.NURSE ---
Patient refused medications Patient is pleasantly confused. Patient does not want to take medications. He says he cannot swallow the medication. I offered to crush them and put them in pudding he again refused. I tried to give patient some water on a sponge and he would not open his mouth just how his teeth clenched. When I asked him to stick his tongue out he just smiled with clenched teeth and would not open his mouth.
[2020-03-26 04:00] VITALS: BP 136/75; PULSE 83; RESP 16; TEMP 36.4; O2SAT 94
[2020-03-26] MEDS: vancomycin 1,000 MG in sodium chloride 0.9% 250 ML 250 MG IV ×3 (04:23→20:51)
[2020-03-26] MEDS: heparin 5,000 unit/mL INJ 1 mL 5000 UNIT SUBCUT ×3 (04:25→20:09)
[2020-03-26 04:58] LABS: Basophils % 0.2 %; Hematocrit 33.6 % (42.0-52.0); Hemoglobin 10.3 g/dL (11.7-16.6); Lymphocytes # 0.9 10^3/uL (0.8-4.8); Lymphocytes % 16.8 %; Mean Corpuscular HGB Conc 30.7 g/dL (30.0-36.0); Mean Corpuscular Hemoglobin 28.4 pg (28.0-34.0); Mean Corpuscular Volume 92.6 fL (80-94); Mean Platelet Volume 9.6 fL (7.4-10.4); Monocytes # 0.5 10^3/uL (0.2-0.9); Monocytes % 8.7 %; Neutrophils % 73.4 %; Nucleated Red Blood Cells % 0 %; Platelet Count 125 10^3/cmm (130-400); Red Blood Count 3.63 10^6/uL (4.1-5.3); Red Cell Distribution Width 17.1 % (12.1-15.1); White Blood Count 5.3 10^3/uL (4.0-10.0)
[2020-03-26 05:20] LABS: Alanine Aminotransferase 6 U/L (0-41); Albumin Level 2.5 g/dL (3.5-5.2); Alkaline Phosphatase 73 IU/L (40-130); Anion Gap 15.3 (5-19); Aspartate Amino Transferase 15 U/L (0-40); Blood Urea Nitrogen 27 mg/dL (8-23); Calcium 10.5 mg/dL (8.5-10.5); Carbon Dioxide 26 mmol/L (22-29); Chloride 102 mmol/L (98-107); Globulin 2.8 g/dL (1.3-4.6); Glucose 136 mg/dL (65-115); Osmolality Calculated 295 mOsm/kg (285-295); Phosphorus 2.6 mg/dL (2.5-4.5); Potassium 4.3 mmol/L (3.5-5.1); Sodium 139 mmol/L (136-145); Total Bilirubin 0.7 mg/dL (0.15-1.2); Total Protein 5.3 g/dL (6.6-8.7)
[2020-03-26 07:45] VITALS: BP 126/67; PULSE 87; RESP 18; TEMP 36.6; O2SAT 97
[2020-03-26] MEDS: HYDROcodone-acetaminophen 10-325 mg Tablet 0.5 TAB PO ×3 (07:50→23:26)
[2020-03-26] MEDS: aspirin 325 mg Tablet PO (07:50)
[2020-03-26] MEDS: metoprolol tartrate 25 mg Tablet PO ×2 (07:50→20:09)
[2020-03-26] MEDS: duloxetine 20 mg Capsule PO (07:55)
[2020-03-26] MEDS: ciprofloxacin 400 MG/200 ML PREMIX 200 MG IV (07:59)
[2020-03-26 08:12] LABS: Glucose Point of Care 136 mg/dL (70-110)
[2020-03-26 10:55] LABS: Glucose Point of Care 147 mg/dL (70-110)
[2020-03-26 11:00] VITALS: BP 148/69; PULSE 75; RESP 17; TEMP 36.6; O2SAT 96
[2020-03-26] MEDS: sodium chloride 0.9% 1,000 ML 100 ML IV ×2 (12:16→23:26)
[2020-03-26 15:23] VITALS: BP 145/74; PULSE 84; RESP 17; TEMP 36.6; O2SAT 95
[2020-03-26 15:51] LABS: Glucose Point of Care 133 mg/dL (70-110)
--- NOTE | 2020-03-26 19:18 | P.PN_ITS ---
Subjective Subjective: Interval history: He is not feeling well today. No appetite. Very nauseated. Generally weak. Vitals/I&O/Wt Last Vital Signs Temp 97.8 F 03/26/20 15:23 Pulse 84 03/26/20 15:23 Resp 17 03/26/20 15:23 BP 145/74 03/26/20 15:23 Pulse Ox 95 03/26/20 15:23 03/26/20 03/26/20 03/26/20 06:59 14:59 22:59 Intake Total 1250 / 2250 Output Total 300 / 300 200 / 500 Balance 1250 / 2250 -300 / -300 -200 / -500 Weight last 48 hrs Weight 127.278 kg Weight 130.635 kg Physical Exam Const: NUTRITIONAL APPEARANCE: obese morbidly obese OTHER: Uncomfortable with nausea, generalized weakness. Daughter is accompanying him at bedside. HENMT: COMMON NORMALS: oropharynx normal Neck/C-Spine: COMMON NORMALS: no JVD Resp: COMMON NORMALS: normal respiratory effort and clear to auscultation bilaterally AUSCULTATION: clear to auscultation bilaterally Cardio: COMMON NORMALS: no JVD, regular rhythm, S1 normal heart sound present, S2 normal heart sound present and No murmurs present (Cardio) RHYTHM: regular rhythm HEART SOUNDS: S1 normal heart sound present and S2 normal heart sound present GI: COMMON NORMALS: Normal to inspection, nondistended, normoactive bowel sounds present and Soft to palpation PALPATION: Yes Soft to palpation and Yes Tenderness to palpation present (GI) (Mild generalized tenderness) Extremity: COMMON NORMALS: no joint enlargement and no pedal edema Neuro: COMMON NORMALS: moves all extremities Skin: RASHES: rashes noted (With severe lymphedema, multiple patchy spots of erythema, some very shallo) OTHER: No active sacral decub. Prior decubitus noted. Urinary Catheter Management^: George: Cath Placed During This Visit: yes Reason for Continuing Indwelling Catheter: Accurate Measurement of Urinary Output in Critically Ill Patients Urinary Catheter Date of Insertion: 03/25/20 Urinary Catheter Time of Insertion: 17:22 Data : 03/26/20 04:18 03/26/20 04:18 Micro: Microbiology 03/25/20 16:18 Blood Culture - Preliminary Blood NEGATIVE TO DATE 03/25/20 16:15 Blood Culture - Preliminary Blood NEGATIVE TO DATE 03/25/20 14:50 Urine Culture - Preliminary Urine,Clean Catch A&P Assessment and plan (1) Altered mental status: She is currently less confused, recognizing his daughter. He is generally very weak, bothered by nausea. Not like his usual self. Continue treatment of UTI with adjustment of antibiotic. Does not have diarrhea at this time. Dehydration little bit better. Hypercalcemia improved, calcium 10.5. TSH is normal. Discussing with residential it appears he had been receiving all his medications. For now some lows which may responsible for mental status changes including Ambien, baclofenAre on hold. Duloxetine dose decreased. Discussed concern of possible metastatic disease to the brain. Unfortunately MRI at this time would not be feasible, and his daughter also agrees would likely not foreign exchange position clerk or prognosis. She is agreeable to treating some of the potential reversible conditions, including UTI, dehydration, and otherwise supportive/symptomatic care. She is looking to resume hospice care if this is possible for him, and I agree that this is an appropriate course of action given his overall functional capacity and quality of life. Status: Acute Qualifiers: Altered mental status type: unspecified Qualified Code(s): R41.82 - Altered mental status, unspecified (2) Acute UTI: Discussing with [facility] it appears that UTI was due to ESBL E. coli. This is sensitive to ertapenem, meropenem, Bactrim, tigecycline, resistant to other antibiotics. It appears he had finished Bactrim on 03/19. Changed antibiotic regimen. Discontinue Cipro. Start Primaxin. Follow-up urine culture. Complicated urinary tract infection with acute encephalopathy. Incidentally noted nonobstructing right kidney stone, possibly responsible for microscopic hematuria. No hydronephrosis on CT. Status: Acute (3) Acidosis, lactic: Previously on Metformin, but apparently has declined to take this any further some days ago. Lactic acidosis suspect is more likely secondary to hypovolemia, poor oral intake. Rehydrate. Treat UTI as above. Status: Acute (4) Dehydration: IV hydration Status: Acute (5) Hypercalcemia: With improvement. Rehydrate. TSH normal. Phosphorus normal. Status: Acute (6) Lymphedema of right lower extremity: Lymphedema with patchy areas of erythema, areas of thickening of the skin, likely secondary to recurrence of primary skin DLBCL and meta stasis to regional lymph nodes in the groin, with lymphatic flow obstruction resulting in lymphedema. Possible superimposed cellulitis. Continue vancomycin. Elevate right lower extremity. Status: Acute (7) DLBCL (diffuse large B cell lymphoma): With recurrence of disease, extensive right groin lymphadenopathy with resultant lymphedema of her lower extremity. Manage symptomatically/supportive care. Case management consultation regarding possibility of resumption of hospice care. Status: Acute (8) Abnormality of rectum: Unclear whether there may be some colitis, although this appears perhaps s omewhat chronic. Unclear whether this may be related to his lymphoma. He does report perhaps having some diarrhea, although this is unconfirmed, not sure that his history is reliable. We will monitor for now. In case of suspicion of colitis will broaden coverage. Status: Acute (9) Hematuria: Hematuria likely secondary to UTI versus nonobstructing right renal calculus. Status: Acute (10) Right renal stone: Incidentally noted on CT scan. Nonobstructing. Status: Acute (11) Atelectasis: Encourage incentive spirometer. Status: Acute (12) Thrombocytopenia: Platelets 125,000. Perhaps related to lymphoma versus infection. Monitor. Consider discontinuation of heparin VT prophylaxis in case of severe decline. Status: Acute (13) Normocytic anemia: Status: Acute (14) Obesities, morbid: Status: Acute (15) DM type 2 (diabetes mellitus, type 2): Reportedly he discontinued taking Metformin recently. Monitor glucose. With very poor oral intake will start regular diet. Status: Acute Attestations Medical Necessity Statement*: Continue admission for assessment management of complicated UTI, infection related encephalopathy, cellulitis, with recurrence of DLBCL, with worsening of generalized weakness, functional decline. Coding Level of Care Code Acute Warehouse Order Picker for Chg Fwd Diagnoses Altered mental status R41.82 Altered mental status type: unspecified Acute UTI N39.0 Acidosis, lactic E87.2 Dehydration E86.0 Hypercalcemia E83.52 Lymphedema of right lower extremity I89.0 DLBCL (diffuse large B cell lymphoma) C83.30 Abnormality of rectum K62.9 Hematuria R31.9 Right renal stone N20.0 Atelectasis J98.11 Thrombocytopenia D69.6 Normocytic anemia D64.9 Obesities, morbid E66.01 DM type 2 (diabetes mellitus, type 2) E11.9
[2020-03-26 20:00] VITALS: BP 136/64; PULSE 80; RESP 16; TEMP 36.4; O2SAT 95
[2020-03-26] MEDS: tamsulosin 0.4 mg Capsule PO (20:09)
[2020-03-26 20:17] LABS: Vancomycin Trough 17.4 ug/mL (10-15)
[2020-03-26] MEDS: artificial tears Op Oint 3.5 gm 1 APPLIC EYE-BOTH (20:44)
[2020-03-26] MEDS: ondansetron 2 mg/ML SDV 2 mL 4 MG IVP (20:45)
[2020-03-26 20:52] LABS: Glucose Point of Care 129 mg/dL (70-110)
[2020-03-27] VITALS (7 sets, daily range): BP systolic 104–147; BP diastolic 62–67; PULSE 72–89; RESP 16–19; TEMP 36.4–37.2; O2SAT 94–97
[2020-03-27] MEDS: vancomycin 1,000 MG in sodium chloride 0.9% 250 ML 250 MG IV ×3 (04:04→20:05)
[2020-03-27] MEDS: heparin 5,000 unit/mL INJ 1 mL 5000 UNIT SUBCUT ×3 (04:04→20:06)
--- NOTE | 2020-03-27 04:56 | PC.NURSE ---
Patient is very confused this am. Lab went in to draw blood. He was yelling he wanted to just let me He was trying to pull his catheter out. He succeeded in pulling out his IV. Patient told me to leave him alone. He would not let me put an IV back in. He was wrapping the call light cord around his hand and pulling tightly. Doctor notified, patient is now a 1:1
[2020-03-27 05:28] LABS: Basophils % 0.2 %; Eosinophils % 0.4 %; Hematocrit 33.8 % (42.0-52.0); Hemoglobin 10.3 g/dL (11.7-16.6); Lymphocytes # 1.1 10^3/uL (0.8-4.8); Lymphocytes % 21.8 %; Mean Corpuscular HGB Conc 30.5 g/dL (30.0-36.0); Mean Corpuscular Hemoglobin 28.7 pg (28.0-34.0); Mean Corpuscular Volume 94.2 fL (80-94); Mean Platelet Volume 9.2 fL (7.4-10.4); Monocytes # 0.5 10^3/uL (0.2-0.9); Monocytes % 9.7 %; Neutrophils # 3.32 10^3/uL (1.8-7.7); Neutrophils % 67.1 %; Nucleated Red Blood Cells % 0 %; Platelet Count 135 10^3/cmm (130-400); Red Blood Count 3.59 10^6/uL (4.1-5.3); Red Cell Distribution Width 17.5 % (12.1-15.1)
[2020-03-27 05:59] LABS: Alanine Aminotransferase 6 U/L (0-41); Albumin Level 2.6 g/dL (3.5-5.2); Alkaline Phosphatase 73 IU/L (40-130); Aspartate Amino Transferase 14 U/L (0-40); Blood Urea Nitrogen 25 mg/dL (8-23); Calcium 10.3 mg/dL (8.5-10.5); Carbon Dioxide 27 mmol/L (22-29); Chloride 102 mmol/L (98-107); Glucose 115 mg/dL (65-115); Osmolality Calculated 287 mOsm/kg (285-295); Sodium 136 mmol/L (136-145); Total Bilirubin 0.7 mg/dL (0.15-1.2); Total Protein 5.6 g/dL (6.6-8.7)
[2020-03-27 06:29] LABS: Glucose Point of Care 104 mg/dL (70-110)
[2020-03-27] MEDS: ondansetron 2 mg/ML SDV 2 mL 4 MG IVP ×2 (09:24→17:57)
[2020-03-27] MEDS: HYDROcodone-acetaminophen 10-325 mg Tablet 0.5 TAB PO ×4 (10:11→23:02)
[2020-03-27] MEDS: sodium chloride 0.9% 1,000 ML 100 ML IV ×2 (10:15→16:49)
--- NOTE | 2020-03-27 10:21 | PC.CHAP ---
Pastoral Care Encounter/Spiritual Assessment Type of Contact [] Declined front office help visit [] Patient/Family/Request visit [] Outpatient visit [] Follow-up visit [] Physician referral [] Code/Alert [x] Routine visit [] Staff referral [] Actively dying [] Patient sleeping [] Family support [] [] Out of room [] Palliative care [] [] Receiving care in room [] Pre-surgical visit [] Trauma [] Long length of stay [] ICU visit [] Other: Relational/Emotional Strength [x] Patient feels connected with others/family/visitors/staff [] Distress [] Loneliness/isolation [] Abandonment Spirituality of Patient [x] Person of Lindsay [] Attends Buddhism of their [place] [x] Believes in Prayer [] Reads Bible or Cheondoism materials [] There are Spiritual issues to be addressed Internal Corrosion Specialist Interventions [x] Prayer [x] Active listening [x] Non-anxious presence [x] Spiritual/emotional support [] Crisis/trauma care [] Spiritual counseling [] Bereavement support [] Provided bereavement packet [] Provided Bible/devotional materials [] Provided toy/stuffed animal, coloring book to patient or family member [] Provided Communion [] Anointing/[place] [] Salvation [x] Completed spiritual assessment [] Other: Impact on Illness or Injury [] Angry [] Fearful [] Anxious [] Often cries [] Exhaustion [] Unable to work [] Unable to attend congregational [] Unable to walk/stand [] Unable to read [] Unable to drive [] Unable to eat/drink [] Unable to sleep [] Unable to be with family [] Patient intubated [] Other: Summary Chaplains talked to and prayed with Patient. Time spent with patient 8 minutes.
[2020-03-27 11:00] LABS: Glucose Point of Care 124 mg/dL (70-110)
--- NOTE | 2020-03-27 12:37 | PC.NURSE ---
Called Brandi at [facility] with update of patient's status. Per Dr. Schmidt, patient will probably be discharged back to [place] on hospice. Brandi requests we discharge him tomorrow, due to their inability to get his new rx on the weekend.
[2020-03-27 13:13] LABS: Ionized Calcium 1.4 mmol/L (1.1-1.4)
[2020-03-27 16:23] LABS: Glucose Point of Care 116 mg/dL (70-110)
--- NOTE | 2020-03-27 16:37 | PM.PN ---
Subjective Subjective: Interval history: He is still quite bothered by nausea. Overnight he had told the nurses that he was ready to pass away, although appears overnight was also confused. Pulled out yesterday. This morning reports some abdominal discomfort. Vitals/I&O/Wt Last Vital Signs Temp 97.9 F 03/27/20 15:19 Pulse 83 03/27/20 15:19 Resp 17 03/27/20 15:19 BP 122/64 03/27/20 15:19 Pulse Ox 95 03/27/20 15:19 03/27/20 03/27/20 03/27/20 06:59 14:59 22:59 Intake Total 590 / 2290 1100 / 1100 Output Total 400 / 900 200 / 200 300 / 500 Balance 190 / 1390 900 / 900 -300 / 600 Weight last 48 hrs Weight 128.866 kg Weight 127.278 kg Physical Exam Const: COMMON NORMALS: no acute distress NUTRITIONAL APPEARANCE: obese morbidly obese OTHER: Awake, alert, appears uncomfortable from nausea. HENMT: COMMON NORMALS: oropharynx normal Neck/C-Spine: COMMON NORMALS: no JVD Resp: COMMON NORMALS: normal respiratory effort and clear to auscultation bilaterally AUSCULTATION: clear to auscultation bilaterally Cardio: COMMON NORMALS: no JVD, regular rhythm, S1 normal heart sound present, S2 normal heart sound present and No murmurs present (Cardio) RHYTHM: regular rhythm HEART SOUNDS: S1 normal heart sound present and S2 normal heart sound present GI: COMMON NORMALS: Normal to inspection, nondistended, normoactive bowel sounds present and Soft to palpation PALPATION: Yes Soft to palpation and Yes Tenderness to palpation present (GI) (Mild generalized tenderness) Extremity: COMMON NORMALS: no joint enlargement and no pedal edema Neuro: COMMON NORMALS: moves all extremities Skin: COMMON NORMALS: no rashes or lesions noted GENERAL SKIN EXAM: no rashes or lesions noted RASHES: rashes noted (With severe lymphedema, multiple patchy spots of erythema, some very shallo) OTHER: No active sacral decub. Prior decubitus noted. Urinary Catheter Management^: George: Cath Placed During This Visit: yes Reason for Continuing Indwelling Catheter: Accurate Measurement of Urinary Output in Critically Ill Patients Urinary Catheter Date of Insertion: 03/25/20 Urinary Catheter Time of Insertion: 17: Data : 03/27/20 04:37 03/27/20 04:37 Micro: Microbiology 03/25/20 14:50 Urine Culture - Final Urine,Clean Catch 03/25/20 16:18 Blood Culture - Preliminary Blood NEGATIVE TO DATE 03/25/20 16:15 Blood Culture - Preliminary Blood NEGATIVE TO DATE A&P Assessment and plan (1) Altered mental status: This morning appears to be somewhat more lucid. He had stated that he is ready to pass away. However, overnight was also confused, and pulled out his IV. Discussed with his daughter, who is also his power of business attorney of healthcare. His urine culture so far is not growing any organisms. It is not clear whether this is due to partial treatment of ESBL UTI with the Bactrim course he finished on 03/19, or perhaps truly there is no UTI. He does still have some hypercalcemia, and this may be contributing to his episodes of delirium, abdominal discomfort, renal stone, constipation, etc. Discussed we may for now continue with IV hydration, reassess calcium, if he will allow. Potentially this may help improve his mental status. Overall, however, if he continues to decline therapy, recently with significant progression of his lymphoma which is under supportive/symptomatic care, with functional decline, decreased oral intake and poor nutrition, poor quality of life, potentially may instead proceed with hospice care if this is possible. Case management is looking into this possibility. With poor appetite and poor oral intake his daughter reports he may have been previously on an antidepressant which may help with oral intake. We may trial corticosteroid which may also be helpful for hypercalcemia in setting of lymphoma. Hydrocortisone 200mg IV daily x3 days. Famotidine IV. Discussed with his daughter risks and benefits, including risk of possible worsening of encephalopathy. She is in agreement to proceed. TSH is normal. Discussing with [facility] it appears he had been receiving all his medications. For now some lows which may responsible for mental status changes including Ambien, baclofen are on hold. Increase duloxetine dose back to his usual. Discussed concern of possible metastatic disease to the brain. Unfortunately MRI at this time would not be feasible, and his daughter also agrees would likely not global director air and climate change or prognosis. She is agreeable to treating some of the potential reversible conditions, including UTI, dehydration, and otherwise supportive/symptomatic care. Hospice care will likely be assessing him for resumption of care upon return to [facility]. Status: Acute Qualifiers: Altered mental status type: unspecified Qualified Code(s): R41.82 - Altered mental status, unspecified (2) Acute UTI: Far no growth on urine culture. Recent ESBL E. coli UTI. Continue Primaxin for now empirically for possible UTI, possible colitis. Discussing with [facility] it appears that UTI was due to ESBL E. coli. This is sensitive to ertapenem, meropenem, Bactrim, tigecycline, resistant to other antibiotics. It appears he had finished Bactrim on 03/19. Incidentally noted nonobstructing right kidney stone, possibly responsible for microscopic hematuria. No hydronephrosis on CT. Status: Acute (3) Acidosis, lactic: Previously on Metformin, but apparently has declined to take this any further some days ago. Lactic acidosis suspect is more likely secondary to hypovolemia, poor oral intake. Rehydrate. Treat UTI as above. Status: Acute (4) Dehydration: IV hydration Status: Acute (5) Hypercalcemia: With improvement. Rehydrate. TSH normal. Phosphorus normal. Status: Acute (6) Lymphedema of right lower extremity: Lymphedema with patchy areas of erythema, areas of thickening of the skin, likely secondary to recurrence of primary skin DLBCL and meta stasis to regional lymph nodes in the groin, with lymphatic flow obstruction resulting in lymphedema. Possible superimposed cellulitis. Continue vancomycin. Elevate right lower extremity. Status: Acute (7) DLBCL (diffuse large B cell lymphoma): With recurrence of disease, extensive right groin lymphadenopathy with resultant lymphedema of her lower extremity. Manage symptomatically/supportive care. Case management consultation regarding possibility of resumption of hospice care. Status: Acute (8) Abnormality of rectum: Unclear whether there may be some colitis, although this appears perhaps somewhat chronic. No diarrhea. Is on Primaxin for UTI, which would cover him empirically for possible colitis. He does have some persistent nausea, some abdominal discomfort. Unclear whether this may be related to his lymphoma. He reported some diarrhea on presentation, but this was not confirmed by the [facility]. We will monitor for now. Status: Acute (9) Hematuria: Hematuria likely secondary to UTI versus nonobstructing right renal calculus. Status: Acute (10) Right renal stone: Incidentally noted on CT scan. Nonobstructing. Status: Acute (11) Atelectasis: Encourage incentive spirometer. Status: Acute (12) Thrombocytopenia: Platelets normalized. Perhaps related to lymphoma versus infection. Monitor. Consider discontinuation of heparin VT prophylaxis in case of severe decline. Status: Acute (13) Normocytic anemia: Status: Acute (14) Obesities, morbid: Status: Acute (15) DM type 2 (diabetes mellitus, type 2): Reportedly he discontinued taking Metformin recently. Monitor glucose. With very poor oral intake will start regular diet. Status: Acute (16) Pressure ulcer: Previous pressure ulcer noted on sacrum, stage unknown. Initially was closed, but now appears with some sloughing, with perhaps some deep tissue injury. Foam dressing. Reposition. His appetite and nutrition has been terrible recently. We will add some protein shakes. Steroid as above for hypercalcemia, and possibly may give him an appetite boost. Status: Acute Attestations Medical Necessity Statement*: Admission for assessment management of acute encephalopathy, complicated UTI, hypercalcemia, poor oral intake and poor nutrition in the setting of recurrent DLBCL, with additional comorbidities as above. Coding Level of Care Code Acute Control Systems Eng for [facility] Fwd Diagnoses Altered mental status R41.82 Altered mental status type: unspecified Acute UTI N39.0 Acidosis, lactic E87.2 Dehydration E86.0 Hypercalcemia E83.52 Lymphedema of right lower extremity I89.0 DLBCL (diffuse large B cell lymphoma) C83.30 Abnormality of rectum K62.9 Hematuria R31.9 Right renal stone N20.0 Atelectasis J98.11 Thrombocytopenia D69.6 Normocytic anemia D64.9 Obesities, morbid E66.01 DM type 2 (diabetes mellitus, type 2) E11.9 Pressure ulcer L89.90
--- NOTE | 2020-03-27 17:26 | PC.NURSE ---
SHIFT SUMMARY PATIENT HAS BEEN CALM AND COOPERATIVE THROUGHOUT SHIFT. REQUESTED [facility] TO COME IN AND PRAY FOR HIM THIS MORNING. PATIENT HAS BEEN ASLEEP MOST OF THE SHIFT, THOUGH HE DOES RESPOND TO VERBAL COMMANDS. HE IS ORIENTED TO HIS NAME, BUT NOTHING ELSE. HAS TOLERATED HIS PORT BEING ACCESSED TODAY, SO HAS BEEN ABLE TO RECEIVE IV ANTIBIOTICS AND HYDRATION. WHEN TURNING TO CLEAN PATIENT AFTER A BM, WAS FOUND TO HAVE AN AREA OF REDNESS ON HIS SACRUM THAT HAS COME OPEN. DR. BERNARDO NOTIFIED AND FOAM DRESSING APPLIED. PATIENT PROPPED UP WITH A PILLOW TO PREVENT PRESSURE TO HIS SACRUM.
[2020-03-27] MEDS: famotidine 20 mg/2 mL INJ IVP (17:55)
[2020-03-27] MEDS: hydrocortisone 100 mg/2 mL SDV 200 MG IVP (17:55)
[2020-03-27] MEDS: artificial tears Op Oint 3.5 gm 1 APPLIC EYE-BOTH (20:05)
[2020-03-27] MEDS: tamsulosin 0.4 mg Capsule PO (20:05)
[2020-03-27] MEDS: metoprolol tartrate 25 mg Tablet PO (20:05)
[2020-03-27 20:13] LABS: Glucose Point of Care 142 mg/dL (70-110)
[2020-03-28] VITALS: BP 121/65; PULSE 72; RESP 19; TEMP 36.8; O2SAT 97
[2020-03-28] MEDS: ondansetron 2 mg/ML SDV 2 mL 4 MG IVP ×2 (02:21→10:46)
[2020-03-28] MEDS: HYDROcodone-acetaminophen 10-325 mg Tablet 0.5 TAB PO ×4 (02:58→16:29)
[2020-03-28 04:00] VITALS: BP 110/58; PULSE 67; RESP 16; TEMP 36.5; O2SAT 96
[2020-03-28] MEDS: vancomycin 1,000 MG in sodium chloride 0.9% 250 ML 250 MG IV ×2 (04:03→11:53)
[2020-03-28] MEDS: heparin 5,000 unit/mL INJ 1 mL 5000 UNIT SUBCUT ×2 (04:03→11:48)
[2020-03-28 05:26] LABS: Basophils % 0.3 %; Eosinophils % 0.3 %; Hematocrit 30.5 % (42.0-52.0); Hemoglobin 9.4 g/dL (11.7-16.6); Lymphocytes # 0.6 10^3/uL (0.8-4.8); Lymphocytes % 18.7 %; Mean Corpuscular HGB Conc 30.8 g/dL (30.0-36.0); Mean Corpuscular Hemoglobin 29.1 pg (28.0-34.0); Mean Corpuscular Volume 94.4 fL (80-94); Mean Platelet Volume 9.3 fL (7.4-10.4); Monocytes # 0.3 10^3/uL (0.2-0.9); Monocytes % 8.5 %; Neutrophils # 2.43 10^3/uL (1.8-7.7); Nucleated Red Blood Cells % 0 %; Platelet Count 102 10^3/cmm (130-400); Red Blood Count 3.23 10^6/uL (4.1-5.3); Red Cell Distribution Width 17.2 % (12.1-15.1); White Blood Count 3.4 10^3/uL (4.0-10.0)
[2020-03-28] MEDS: famotidine 20 mg/2 mL INJ IVP (05:31)
[2020-03-28 05:47] LABS: Alanine Aminotransferase 6 U/L (0-41); Albumin Level 2.3 g/dL (3.5-5.2); Alkaline Phosphatase 62 IU/L (40-130); Aspartate Amino Transferase 17 U/L (0-40); Blood Urea Nitrogen 25 mg/dL (8-23); Calcium 9.8 mg/dL (8.5-10.5); Carbon Dioxide 27 mmol/L (22-29); Chloride 102 mmol/L (98-107); Glucose 165 mg/dL (65-115); Osmolality Calculated 286 mOsm/kg (285-295); Sodium 134 mmol/L (136-145); Total Bilirubin 0.6 mg/dL (0.15-1.2)
--- NOTE | 2020-03-28 05:52 | PC.NURSE ---
SHIFT SUMMARY Has had a good night with 1:1 sitter at bedside thru shift. Is confused but has been pleasant and cooperative. Has not pulled at IV or George. Has not tried to get OOB. Going to try without sitter today. IV fluids infusing without difficulty and receiving IV antibiotics. Takes po meds well crushed in applesauce. Receives scheduled pain med po q4h. George draining very cloudy dark shamika urine.
[2020-03-28 05:56] LABS: Anion Gap 9.1 (5-19); Potassium 4.1 mmol/L (3.5-5.1)
[2020-03-28] MEDS: duloxetine 60 mg Capsule PO (06:31)
[2020-03-28] MEDS: aspirin 325 mg Tablet PO (06:31)
[2020-03-28] MEDS: metoprolol tartrate 25 mg Tablet PO (06:32)
[2020-03-28] MEDS: sodium chloride 0.9% 1,000 ML 100 ML IV (06:32)
[2020-03-28 06:37] LABS: Glucose Point of Care 127 mg/dL (70-110)
[2020-03-28 07:17] VITALS: BP 115/62; PULSE 69; RESP 20; TEMP 36.6; O2SAT 97
[2020-03-28] MEDS: hydrocortisone 100 mg/2 mL SDV 200 MG IVP (08:27)
[2020-03-28 10:05] LABS: Glucose Point of Care 140 mg/dL (70-110)
[2020-03-28 11:34] VITALS: BP 129/65; PULSE 65; RESP 18; TEMP 36.8; O2SAT 97
--- NOTE | 2020-03-28 13:33 | P.DS_ITS ---
Discharge Providers Date of Admission: 03/26/20 19:18 Date of Discharge: March 28, 2020 Attending Provider at Admission: Magdy Schmidt Attending Provider at Discharge: Reed Butler MD Primary Care Provider: Ashley Sanchez MD Diagnoses at Discharge Discharge Diagnosis (1) Altered mental status: Status: Acute Qualifiers: Altered mental status type: unspecified Qualified Code(s): R41.82 - Altered mental status, unspecified (2) Acute UTI: Status: Acute (3) Acidosis, lactic: Status: Acute (4) Dehydration: Status: Acute (5) Hypercalcemia: Status: Acute (6) Lymphedema of right lower extremity: Status: Acute (7) DLBCL (diffuse large B cell lymphoma): Status: Acute (8) Abnormality of rectum: Status: Acute (9) Hematuria: Status: Acute (10) Right renal stone: Status: Acute (11) Atelectasis: Status: Acute (12) Thrombocytopenia: Status: Acute (13) Normocytic anemia: Status: Acute (14) Obesities, morbid: Status: Acute (15) DM type 2 (diabetes mellitus, type 2): Status: Acute (16) Pressure ulcer: Status: Acute Reason for Visit Reason for Visit: wounds to lower extremities Hospital Course Hospital Course Pleasant 74-year-old gentleman with relapsing/remitting course of DLBCL with primary cutaneous focus treated with R-CHOP in 2014 initially with good response, but elected to stop treatment after fourth cycle, without evidence of lymphoma on restaging scans, however, with progressive worsening of skin changes in the right leg in 2018, with confirmation punch biopsy of recurrence of DLBCL, managed symptomatically, with supportive care since then, transiently also on hospice care until last July, with gradual/persistent decline in functional status, he is completely bedridden, with other history including CAD DM2, HTN, HLD, obesity. He was brought in for evaluation due to change in mental status, he was significantly more confused than usual. She also reports last several days he had declined to take any of his medications, even if they were crushed. He himself currently appears to be more alert. He is able to tell me he thinks he is in the hospital, but does not remember the name of the town, or the year. He does remember that he has lymphoma, does not recall any other medical problems. He then remembers that he may have seen a heart doctor and had a stent placed. He does not remember the name of the heart doctor, does not remember the name of his oncologist. States he may have been in [place] once previously. He states that his eyes have been somewhat burning and itching like there is sand in them. He also thinks he may have been having diarrhea, although there has been no report of this. In ER he is afebrile (and has been afebrile at [facility] per documentation), without leukocytosis. With anemia, hemoglobin 11.4, platelet level 129. Normal sodium and potassium level. BUN 25. Creatinine 0.9. Lactic acid 2.3. Calcium 11.2. BNP 586. Total protein 6. Albumin 2.8. CRP 33. UA with 1+ ketones, 2+ blood, 1+ bilirubin, positive urobilinogen, 15-25 RBC, 0-4 WBC, 0-4 squamous epithelial cells. 2+ bacteria. George catheter was placed in ER. His EKG showed sinus rhythm with occasional PVCs. In ER he is noted to have marked swelling of the right lower extremity. Venous duplex was obtained without finding of DVT. With finding of right inguinal mass possibly due to lymphoma. Head CT showed moderate to severe bilateral frontal lobe atrophy, normal size ventricle, no acute findings. Chest x-ray with no acute cardiopulmonary disease. CT abdomen pelvis renal protocol shows nonobstructing right kidney stone, no ureteral stones. Noted new right external iliac adenopathy worrisome for recurrence of metastatic disease. A bnormal soft tissue contusion or edema in the lower right flank. Mild wall thickening of the proximal rectum. Small bilateral pleural effusions. Bilateral atelectasis. Patient was admitted to the hospital for work-up and evaluation of reversible cause of altered mental status. At start patient was started on broad-spectrum antibiotics for possible ESBL UTI. But his urine cultures remain negative so antibiotics were withheld. His electrolyte abnormalities with corrected. For hypercalcemia which is thought to be because of recurrence of lymphoma he was started on high-dose steroids. There is a concern of possible metastatic to brain but MRI was not done after further goals of care discussion with his daughter who is also the power of energy attorney as it would not really change his overall prognosis. Given has severe poor functional capacity at baseline, recurrence of lymphoma daughter decided for hospice. business services director were consulted. Patient is be discharged in hemodynamically stable condition back to [facility] with hospice. Plan was discussed in detail with patient's daughter and she is agreeable to same. Physical Exam Urinary Catheter Management^: George: Cath Placed During This Visit: yes Reason for Continuing Indwelling Catheter: Hospice/Comfort/Palliative Care Urinary Catheter Date of Insertion: 03/25/20 Urinary Catheter Time of Insertion: 17:22 Discharge Data Data Completed and Pending: Completed Studies During Hospitalization Category Date Time Status CT head wo con* 7 0450 Urgent Cat Scan 03/25/20 13:[address] kidney stone 7 4176 Urgent Cat Scan 03/25/20 16:46 Completed XR chest 1V [place] ble [id number] Stat Exams 03/25/20 16:03 [place] [id number] Urgent Ultrasound 03/25/20 11:21 Completed Pending at discharge Category Date Time Status Blood Culture Sta t Lab 03/25/20 16:18 Results Labs from last 24 hours 03/28/20 03/28/20 03/28/20 09:58 06:33 04:48 WBC RBC Hgb Hct MCV MCH MCHC RDW Plt Count MPV Neut % (Auto) Lymph % (Auto) [place] % (Auto) Eos % (Auto) Baso % (Auto) Neut # (Auto) Lymph # (Auto) [place] # (Auto) Eos # (Auto) Baso # (Auto) Nucleated RBC % (a uto) Nucleated RBCs # Sodium 134 L Potassium 4.1 Chloride 102 Carbon Dioxide 27 Anion Gap 9.1 BUN 25 H Creatinine 0.7 GFR Calculation Not Reportable Glucose 165 H POC Glucose 140 H 127 H Calculated Osmolal ity 286 Calcium 9.8 Total Bilirubin 0.6 AST 17 ALT 6 Alkaline Phosphata se 62 Total Protein 4.9 L Albumin 2.3 L Globulin 2.6 03/28/20 03/27/20 03/27/20 04:48 20:08 16:08 WBC 3.4 L RBC 3.23 L Hgb 9.4 L Hct 30.5 L MCV 94.4 H MCH 29.1 MCHC 30.8 RDW 17.2 H Plt Count 102 L MPV 9.3 Neut % (Auto) 71.0 Lymph % (Auto) 18.7 [place] % (Auto) 8.5 Eos % (Auto) 0.3 Baso % (Auto) 0.3 Neut # (Auto) 2.43 Lymph # (Auto) 0.6 L [place] # (Auto) 0.3 Eos # (Auto) 0.0 Baso # (Auto) 0.0 Nucleated RBC % (a uto) 0 Nucleated RBCs # 0.0 Sodium Potassium Chloride Carbon Dioxide Anion Gap BUN Creatinine GFR Calculation Glucose POC Glucose 142 H 116 H Calculated Osmolal ity Calcium Total Bilirubin AST ALT Alkaline Phosphata se Total Protein Albumin Globulin Vitals: Last Vital Signs Temp 98.2 F 03/28/20 11:34 Pulse 65 03/28/20 11:34 Resp 18 03/28/20 11:34 BP 129/65 03/28/20 11:34 Pulse Ox 97 03/28/20 11:34 Discharge Plan Discharge Patient Disposition: Hospice - Medical Facility Condition: Stable Prescriptions: New Carafate 100 mg/mL suspension 1 g PO BID Qty: 420 RF: 0 Continued fentanyl 50 mcg/hr Patch 72 Hour 1 patch TRANSDERMAL Q72H RF: 0 acetaminophen 650 mg Suppository 650 mg VT Q4H PRN (Reason: fever/pain) RF: 0 aspirin 325 mg Tablet 325 mg PO DAILY@0700 RF: 0 gentian rod 1 % Solution See Rx Instructions .ROUTE .COMPLEX RF: 0 Senna Plus 8.6-50 mg tablet 2 tab PO BID@0700,2100 RF: 0 hydrocodone-acetaminophen 10-325 mg tablet 1 tab PO Q4H RF: 0 Proctozone-HC 2.5 % Cream With Perineal Applicator See Rx Instructions .ROUTE .COMPLEX RF: 0 Milk of Magnesia 400 mg/5 mL Suspension 400 mg PO DAILY PRN (Reason: Constipation) RF: 0 tamsulosin 0.4 mg Capsule 0.4 mg PO DAILY@2100 RF: 0 baclofen 10 mg tablet 10 mg PO TID PRN (Reason: muscle cramps) RF: 0 Fleet Enema 19-7 gram/118 mL Enema 118 ml VT DAILY PRN (Reason: Constipation) RF: 0 Dulcolax (bisacodyl) 5 mg Tablet,Delayed Release (Dr/Ec) 5 mg PO DAILY PRN (Reason: Constipation) RF: 0 zolpidem 5 mg Tablet 5 mg PO BEDTIME@2100 RF: 0 Nystop 100,000 unit/gram powder See Rx Instructions .ROUTE .COMPLEX RF: 0 Miralax 17 gram/dose Powder 17 g PO DAILY RF: 0 ondansetron 4 mg tablet,disintegrating 4 mg PO Q6H PRN (Reason: nausea/vomiting) RF: 0 metoprolol tartrate 25 mg tablet 25 mg PO BID@0700,2100 RF: 0 Cymbalta 60 mg Capsule,Delayed Release(Dr/Ec) 60 mg PO DAILY@0700 RF: 0 gabapentin 300 mg Tablet Extended Release 24 Hr 300 mg PO TID@0700,1200,1800 RF: 0 atropine 0.01 % Drops, Emulsion 4 drp OPHTHALMIC (EYE) Q4H PRN (Reason: Secretions) RF: 0 Cough Drops (with eucalyptus) 1 tab PO Q2H PRN (Reason: cough/sore throat) RF: 0 Discharge Orders: Discharge Order (Routine); Ordered 03/28/20 Ordered By: Reed Butler Referrals: [facility] [Outside] Discharge Diet: Usual diet Discharge Activity: Resume usual activity Patient Instructions: Sucralfate (By mouth), Hospice Care Discharge Attestations Time Spent in Discharge Care*: greater than 30 min Specific Discharge Activities: educating and/or supporting family/caregiver, discussing with piano case and bench assembler/social workers/dc planners, documenting/other paperwork and evaluating patient/reviewing data Status at Discharge: Cognitive status at discharge: moderately impaired cognition , Behavioral status at discharge: cooperative , Functional status at discharge: other assisted ambulation Overall status at discharge: patient is back to baseline Quality Metrics Clinical Quality Measures During this hospital stay, did patient experience: None Coding Level of Care Code Acute Site Medical Director for g Fwd Diagnoses Altered mental status R41.82 Altered mental status type: unspecified Acute UTI N39.0 Acidosis, lactic E87.2 Dehydration E86.0 Hypercalcemia E83.52 Lymphedema of right lower extremity I89.0 DLBCL (diffuse large B cell lymphoma) C83.30 Abnormality of rectum K62.9 Hematuria R31.9 Right renal stone N20.0 Atelectasis J98.11 Thrombocytopenia D69.6 Normocytic anemia D64.9 Obesities, morbid E66.01 DM type 2 (diabetes mellitus, type 2) E11.9 Pressure ulcer L89.90
[2020-03-28 15:49] VITALS: BP 118/57; PULSE 69; RESP 18; TEMP 36.6; O2SAT 97
[2020-03-28 17:18] LABS: Glucose Point of Care 140 mg/dL (70-110)
[2020-03-28 18:22] VITALS: BP 118/57; PULSE 69; RESP 18; TEMP 36.6; O2SAT 97
[2020-03-28 19:09] LABS: Globulin 2.5 g/dL (1.3-4.6); Total Protein 4.8 g/dL (6.6-8.7)
== END 2020-03-28 18:00 | disposition hospice, inpatient (51) | DRG 690 ==
LOC: ER 12:51 → MEDSURG 18:30
PROVIDERS: Admitting Provider Internal Medicine; Emergency Provider Family Medicine; PCP Internal Medicine; Visit Provider Student in an Organized Health Care Education/Training Program
DX: N39.0 Urinary tract infection, site not specified (principal); E87.2 Acidosis; C83.30 Diffuse large B-cell lymphoma, unspecified site; G93.40 Encephalopathy, unspecified; J98.11 Atelectasis; Z16.12 Extended spectrum beta lactamase (ESBL) resistance; E86.0 Dehydration; D64.9 Anemia, unspecified; D69.6 Thrombocytopenia, unspecified; E83.52 Hypercalcemia; E66.01 Morbid (severe) obesity due to excess calories; Z68.24 Body mass index [BMI] 24.0-24.9, adult; Z74.01 Bed confinement status; I25.10 Atherosclerotic heart disease of native coronary artery without angina pectoris; E78.5 Hyperlipidemia, unspecified; B96.89 Other specified bacterial agents as the cause of diseases classified elsewhere; B96.82 Vibrio vulnificus as the cause of diseases classified elsewhere; Z79.82 Long term (current) use of aspirin; K21.9 Gastro-esophageal reflux disease without esophagitis; N20.0 Calculus of kidney
CPT/HCPCS: 12345; 36415; 36416; 36591; 51702; 70450; 71045; 74176; 80053; 80202; 81001; 82330; 82962; 83605; 83880; 84100; 84443; 85025; 86140; 87040; 87086; 93005; 93971; 96372; 99283; G0378; J0696; J0743; J0744; J1644; J1720; J2405; J3370; J3490; J7030; J7040; J7050